=== PATIENT | female | born 1945 ===

== ENCOUNTER 2024-07-29 09:50 | Inpatient (IN) | payer OTHER ==
[~2024-07-29] VITALS: Ht 160 cm; Wt 93.9 kg
[2024-07-29 09:45] LABS: HEMATOCRIT 41.8 % (36.0-45.00); MEAN CELL VOLUME 92.4 fL (80.00-100.00); MEAN CORPUSCULAR HEMOGLOBIN 30.9 pg (27.00-32.0); MEAN CORPUSCULAR HGB CONC 33.4 g/dl (32.0-36.0); PLATELET COUNT 160 K/uL (150-450); RED BLOOD COUNT 4.52 M/uL (4.00-6.00); RED CELL DISTRIBUTION WIDTH 15.1 % (11.5-14.5)
[2024-07-29] MEDS ORDERED: LOSARTAN-HCTZ1 EAC2 PO (09:55)
[2024-07-29] MEDS ORDERED: ELIQUIS5 MG PO (09:55)
[2024-07-29] MEDS ORDERED: DILTIAZEM ER240 M3 PO (09:55)
[2024-07-29 09:56] VITALS: BP 170/80
[2024-07-29] MEDS ORDERED: SIMVASTATIN40 MG PO (09:56)
[2024-07-29 10:06] LABS: INR 1.17; PARTIAL THROMBOPLASTIN TIME 36.2 SECONDS (22.0-34.0); PROTHROMBIN TIME 12.6 SECONDS (9.0-11.5)
[2024-07-29 10:31] LABS: URINE APPEARANCE Clear; URINE BILIRRUBIN Negative (NEGATIVE); URINE BLOOD Trace; URINE COLOR Yellow; URINE GLUCOSE Negative (NEGATIVE); URINE KETONE Negative (NEGATIVE); URINE LEUKOCYTE Negative; URINE NITRATE Negative; URINE PROTEIN >=1000 (NEGATIVE)
[2024-07-29 10:36] LABS: URINE BACTERIA 782.3 uL (0.0-1933); URINE CAST 2.28 uL (0.0-1.40); URINE EPITHELIAL CELLS 18.8 uL (0.0-38.8); URINE RBC 20.6 uL (0.0-20.8); URINE WBC 8.6 uL (0.0-23.2)
[2024-07-29 10:52] LABS: ALBUMIN 3.1 gm/dL (3.4-5.0); BILIRUBIN TOTAL 0.56 mg/dL (0.3-1.2); CALCIUM 9.6 mg/dL (8.5-10.1); CREATININE SERUM 0.7 mg/dL (0.55-1.02); GFR 80.72; GLOBULINA 3.7 G/DL (2.4-3.5); POTASSIUM 3.41 mEq/L (3.5-5.1); TOTAL PROTEIN 6.8 gm/dL (6.4-8.2)
[2024-07-29 11:45] LABS: RH POSITIVE
[2024-08-11] MEDS ORDERED: ISOPROPYL ALCOHOL 30 ML OUNCE TOP ONE (08:30)
[2024-08-11] MEDS ORDERED: TRANEXAMIC ACID 100MG/1ML (1000MG) AMPUL IV ONE ×2 (08:30)
[2024-08-11] MEDS ORDERED: LIDOCAINE HCL 1%/EPINEPHRINE 20ML VIAL IJ ONE (08:30)
[2024-08-11] MEDS ORDERED: CEFAZOLIN SODIUM 1,000 MG VIAL IV ONE (08:30)
[2024-08-11] MEDS ORDERED: BUPIVACAINE HCL/PF 0.25% 50 ML VIAL IJ ONE (08:30)
[2024-08-11] MEDS ORDERED: MORPHINE SULFATE 4 MG/ML VIAL IV ONE (08:30)
[2024-08-11] MEDS ORDERED: OxyCODONE HCL 5 MG TABLET (ROXICODONE) PO PRN (09:15)
[2024-08-11] MEDS ORDERED: MORPHINE SULFATE 4 MG/ML CARTRIDGE IV PRN (09:15)
[2024-08-11] MEDS ORDERED: ONDANSETRON HCL 2 MG/ML VIAL IV PRN (09:15)
[2024-08-11] MEDS ORDERED: SODIUM CHLORIDE 0.45 % 1,000 ML IV SCH (09:15)
[2024-08-11] MEDS ORDERED: ACETAMINOPHEN 500 MG GEL..CAP PO SCH (12:00)
[2024-08-11 13:59] VITALS: BP 170/80
[2024-08-11] MEDS ORDERED: ENALAPRILAT DIHYDRATE 1.25 MG/ML VIAL IV PRN (14:45)
[2024-08-11 16:00] VITALS: BP 154/62
[2024-08-11] MEDS ORDERED: CEFAZOLIN SODIUM 1,000 MG VIAL IV SCH (17:00)
[2024-08-11] MEDS ORDERED: GABAPENTIN 300 MG CAPSULE PO SCH (17:00)
[2024-08-12 01:39] VITALS: BP 103/56
[2024-08-12 06:17] LABS: HEMATOCRIT 32.6 % (36.0-45.00); MEAN CELL VOLUME 92.7 fL (80.00-100.00); MEAN CORPUSCULAR HEMOGLOBIN 31.2 pg (27.00-32.0); MEAN CORPUSCULAR HGB CONC 33.6 g/dl (32.0-36.0); RED BLOOD COUNT 3.52 M/uL (4.00-6.00); RED CELL DISTRIBUTION WIDTH 15.1 % (11.5-14.5)
[2024-08-12 06:33] LABS: PLATELET COUNT 124 K/uL (150-450)
[2024-08-12 08:04] VITALS: BP 143/61
[2024-08-12] MEDS ORDERED: ELIQUIS2.5 MG PO (08:27)
[2024-08-12] MEDS ORDERED: CEFADROXIL500 MG PO (08:27)
[2024-08-12] MEDS ORDERED: PERCOCET 5-3251 EACH PO (08:27)
[2024-08-12] MEDS ORDERED: SENNOSIDES 1 TAB TABLET PO SCH (09:00)
[2024-08-12] MEDS ORDERED: APIXABAN 5 MG TABLET PO SCH (09:00)
[2024-08-12] MEDS ORDERED: APIXABAN 2.5 MG TABLET PO SCH (09:00)
[2024-08-12] MEDS ORDERED: DILTIAZEM HCL 240 MG CAP.SR.24H PO SCH ×2 (09:00)
[2024-08-12] MEDS ORDERED: LOSARTAN POTASSIUM 100 MG TABLET PO SCH ×2 (09:00)
[2024-08-12] MEDS ORDERED: SOD FERRIC GLUC COMPLX/SUCROSE 62.5 MG/5 ML AMPUL IV SCH (12:00)
[2024-08-12] MEDS ORDERED: Cyanocobalamin/Mecobalamin 1 TAB.SL SL SCH (12:00)
[2024-08-12 12:59] VITALS: BP 150/73
[2024-08-12 16:29] VITALS: BP 145/80
[2024-08-12] MEDS ORDERED: VITAMIN B COMPLEX 1 EACH PO SCH (17:00)
[2024-08-13 01:56] VITALS: BP 140/80
[2024-08-13 07:00] LABS: HEMATOCRIT 29.4 % (36.0-45.00); MEAN CELL VOLUME 92.8 fL (80.00-100.00); MEAN CORPUSCULAR HEMOGLOBIN 31.4 pg (27.00-32.0); MEAN CORPUSCULAR HGB CONC 33.9 g/dl (32.0-36.0); RED BLOOD COUNT 3.17 M/uL (4.00-6.00); RED CELL DISTRIBUTION WIDTH 14.8 % (11.5-14.5)
[2024-08-13 07:05] LABS: PLATELET COUNT 111 K/uL (150-450)
[2024-08-13 08:25] VITALS: BP 132/78; BP 149/78
[2024-08-13] MEDS ORDERED: IRON FUM,PS/FOLIC ACID/VITC/B3 1 CAP CAPSULE PO SCH (09:00)
[2024-08-13 16:11] VITALS: BP 124/69
== END 2024-08-13 20:19 | DRG 470 ==
LOC: O/R 08-11 05:08 → OB/GYN 08-11 05:08 → SURH 08-11 07:00 → OB/GYN 08-11 10:09
PROVIDERS: ADMIT Orthopaedic Surgery; ATTEND Orthopaedic Surgery
PROC: 0MNN0ZZ Release Right Knee Bursa and Ligament, Open Approach (ICD-10-PCS; 2024-08-11)
PROC: 0SUC07Z Supplement Right Knee Joint with Autologous Tissue Substitute, Open Approach (ICD-10-PCS; 2024-08-11)
PROC: 0SRC0J9 Replacement of Right Knee Joint with Synthetic Substitute, Cemented, Open Approach (ICD-10-PCS; principal; 2024-08-11 07:00)
DX: M17.11 Unilateral primary osteoarthritis, right knee (principal); D62 Acute posthemorrhagic anemia; M22.11 Recurrent subluxation of patella, right knee; E66.9 Obesity, unspecified; I48.91 Unspecified atrial fibrillation; I11.9 Hypertensive heart disease without heart failure